=== PATIENT | female | born 1940 | race African-American/Black ===

== ENCOUNTER 2016-11-25 14:28 | Inpatient (IN) | payer MEDICARE, OTHER ==
[~2016-11-25] VITALS: Ht 160 cm; Wt 89.9 kg
[2016-11-25] MEDS ORDERED: SODIUM CHLORIDE 0.9% 1,000 ML ONE (18:49)
[2016-11-25] MEDS ORDERED: BISACODYL EC 5 MG TAB PO PRN (20:55)
[2016-11-25] MEDS ORDERED: ALU/MAG/SIM 30 ML UDC PO PRN (20:55)
[2016-11-25] MEDS ORDERED: SALINE FLUSH 10 ML FLUSH PRN (20:55)
[2016-11-25] MEDS ORDERED: MAG HYDROX 30 ML UDC PO PRN (20:55)
[2016-11-25] MEDS ORDERED: BISACODYL 10 MG SUPP RECTAL PRN (20:55)
[2016-11-25] MEDS ORDERED: DEXTROSE 50% SYRINGE 50 ML IV PRN (20:55)
[2016-11-25] MEDS ORDERED: GLUCAGON 1 MG VIAL IM PRN (20:55)
[2016-11-25 20:58] VITALS: RESP 18; TEMP 97.4
[2016-11-25 21:19] VITALS: Ht 160 cm; Wt 89.9 kg
[2016-11-25 21:20] VITALS: BP_SYST 164
[2016-11-25] MEDS: SODIUM CHLORIDE 0.9% 1,000 ML IV SCH (22:49)
[2016-11-25 23:53] VITALS: RESP 16
[2016-11-26] VITALS (8 sets, daily range): BP systolic 161–189; RESP 16–20; TEMP 97.8–98.7
[2016-11-26] MEDS: SODIUM CHLORIDE 0.9% FLUSH BAG 500 ML IV SCH (04:42)
[2016-11-26] MEDS: SALINE FLUSH 10 ML FLUSH SCH ×2 (08:00→20:35)
[2016-11-26] MEDS: SODIUM CHLORIDE 0.9% 1,000 ML IV SCH (10:53)
[2016-11-27] VITALS (9 sets, daily range): BP systolic 127–194; RESP 18–20; TEMP 98.1–98.3
[2016-11-27] MEDS: ACETAMINOPHEN 325 MG TAB PO PRN ×2 (02:48→11:55)
[2016-11-27] MEDS: SODIUM CHLORIDE 0.9% FLUSH BAG 500 ML IV SCH (04:08)
[2016-11-27] MEDS: SALINE FLUSH 10 ML FLUSH SCH ×2 (08:54→20:03)
[2016-11-27] MEDS ORDERED: MAGNESIUM SULF 1 GM/100 ML 100 ML IV ONE (15:35)
[2016-11-27] MEDS: cloNIDine 0.1 MG TAB PO SCH ×2 (16:39→20:04)
[2016-11-27] MEDS: NEBIVOLOL 2.5 MG TAB PO SCH (16:39)
[2016-11-28] VITALS (7 sets, daily range): BP systolic 123–159; RESP 18; TEMP 97.6–98.4
[2016-11-28] MEDS: SODIUM CHLORIDE 0.9% FLUSH BAG 500 ML IV SCH (05:01)
[2016-11-28] MEDS: NEBIVOLOL 2.5 MG TAB PO SCH (08:58)
[2016-11-28] MEDS: SALINE FLUSH 10 ML FLUSH SCH (08:59)
[2016-11-28] MEDS: cloNIDine 0.1 MG TAB PO SCH ×2 (08:59→15:51)
[2016-11-28] MEDS ORDERED: COLCHICINE 0.6 MG TAB PO SCH (11:30)
[2016-11-28] MEDS ORDERED: CYANOCOBA 500 MCG TAB PO SCH (11:31)
[2016-11-28] MEDS ORDERED: GABAPENTIN 300 MG CAP PO SCH (11:31)
[2016-11-28] MEDS ORDERED: LEVOTHYROXINE 0.025 MG TAB PO SCH (11:32)
[2016-11-28] MEDS ORDERED: FLINTSTONES COMPLETE PO SCH (11:32)
[2016-11-28] MEDS ORDERED: NEBIVOLOL 10 MG TAB PO SCH (11:33)
[2016-11-28] MEDS ORDERED: Meclizine HCl 25 MG TAB PO SCH (16:00)
== END 2016-11-28 17:17 | disposition home or self-care (01) | DRG 684 ==
LOC: ER 14:28 → ENPENDDIS 19:12 → EMR 19:12 → 3NT 20:52
PROVIDERS: ADMIT Internal Medicine; ATTEND Internal Medicine
DX: N17.9 Acute kidney failure, unspecified (principal); E11.22 Type 2 diabetes mellitus with diabetic chronic kidney disease; D47.2 Monoclonal gammopathy; E83.42 Hypomagnesemia; D64.9 Anemia, unspecified; N28.1 Cyst of kidney, acquired; R53.1 Weakness; I12.9 Hypertensive chronic kidney disease with stage 1 through stage 4 chronic kidney disease, or unspecified chronic kidney disease; I25.10 Atherosclerotic heart disease of native coronary artery without angina pectoris; R63.4 Abnormal weight loss; Z68.35 Body mass index [BMI] 35.0-35.9, adult; N18.4 Chronic kidney disease, stage 4 (severe); Z87.11 Personal history of peptic ulcer disease; G47.00 Insomnia, unspecified; E55.9 Vitamin D deficiency, unspecified; G25.0 Essential tremor; Z79.84 Long term (current) use of oral hypoglycemic drugs; M19.90 Unspecified osteoarthritis, unspecified site; G89.29 Other chronic pain; M54.5 Low back pain; R26.9 Unspecified abnormalities of gait and mobility; Z28.21 Immunization not carried out because of patient refusal
CPT/HCPCS: 36415; 70450; 70551; 71010; 76770; 80048; 80053; 80069; 81001; 82570; 82947; 83735; 83930; 83935; 84156; 84300; 85025; 87088; 93005; 94799; 96360; 99222; 99232; 99233; 99239